=== PATIENT | female | born 1945 | race American Indian/Alaskan Native ===

== ENCOUNTER 2025-07-31 14:00 | Outpatient (REF) | payer MEDICAID, SELFPAY ==
--- NOTE | ~2025-07-31 | XR_ITS ---
EXAMINATION: XR CHEST CLINICAL INFORMATION: sob COMPARISON: None available. TECHNIQUE: PA and lateral views. FINDINGS: Pulmonary reticular pattern. No hyperinflation. No consolidation, pleural effusion or pneumothorax. Cardiomediastinal silhouette size is normal. Calcified plaque thoracic aorta. Multilevel lumbar spondylosis. Kyphotic deformity mid thoracic spine. Osteopenia versus osteoporosis. XR/XR chest 2V IMPRESSION: Chronic interstitial lung disease. Electronically signed by: Saurav Vizcarra MD 07/31/2025 02:34 PM EST
--- OUTSIDE RECORDS SUMMARY | 2025-07-31 13:00 | XMS_ITS | Encounter Summary ---
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 angina pectoris Mixed hyperlipidemia Acquired hypothyroidism Victor Hugo Bojorquez MD [address] [place] [address] Phone: tel: fax: Referral ID Status Reason Start Date Expiration Date Visits Requested Visits Authorized [id number] Authorized Continuity of Care 07/31/2025 07/31/2026 6 6 Scheduling Instructions Would benefit from med review and med box * Consultation (Routine) - Pending Review Specialty Diagnoses / Procedures Referred By Alan t Referred To Contact Otolaryngology Diagnoses Decreased hearing of both ears Victor Hugo Bojorquez MD [address] [place] [address] Phone: tel: fax: Referral ID Status Reason Start Date Expiration Date Visits Requested Visits Authorized [id number] Pending Review Specialty Services Required 07/31/2026 1 1 * Imaging (Routine) - Pending Review Specialty Diagnoses / Procedures Referred By Alan t Referred To Contact Cardiology Diagnoses SOB (shortness of breath) Procedures Transthoracic Echo (TTE) Complete Victor Hugo Bojorquez MD [address] [place] [address] Phone: tel: fax: Referral ID Status Reason Start Date Expiration Date Visits Requested Visits Authorized [id number] Pending Review Perform Procedure 07/31/2026 1 1 * Consultation (Routine) - Pending Review Specialty Diagnoses / Procedures Referred By Contac t Referred To Contact Cardiology Diagnoses SOB (shortness of breath) Victor uHgo oBjorquez MD [address] [place] [address] Phone: tel: fax: Referral ID Status Reason Start Date Expiration Date Visits Requested Visits Authorized [id number] Pending Review Specialty Services Required 07/31/2026 1 1 Reason for Visit * Reason Comments Breathing Problem Encounter Details Date Type Department Care Team (Late st Contact Info) Description 07/31/2025 1:00 PM EST Office Visit 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 pectoris; S/P angioplasty; Mixed hyperlipidemia; Migraine without status migrainosus, not intractable, unspecified migraine type; Acquired hypothyroidism; History of Meniere's disease; Decreased hearing of both ears Social History Tobacco Use Types Packs/Day Years Used Date Smoking Tobacco: Never Passive Smoke Exposure: Never Smokeless Tobacco: Never Tobacco Cessation:Counseling Given: Not Answered Alcohol Use Standard Drinks/Week Comments Never 0 (1 standard drink = 0.6 oz pur e alcohol) Comments Unknown Sex and Gender Information Value Date Recorded Sex Assigned at Female 07/31/2025 12:44 PM EST Legal Sex Female 10:21 AM EDT Gender Identity Female 07/31/2025 12:44 PM EST Sexual Orientation Straight 07/31/2025 12 :44 PM EST documented as of this encounter Last Filed Vital Signs Vital Sign Reading Time Taken Comments Blood Pressure 145/69 07/31/2025 1:07 PM EST Pulse 82 07/31/2025 1:07 PM EST Temperature 36.7 C (98.1 F) 07/31/2025 1:07 PM EST Respiratory Rate 16 07/31/2025 1:07 PM EST Oxygen Saturation 99% 07/31/2025 1:07 PM EST Inhaled Oxygen Concentration - - Weight 71.7 kg (158 lb) 07/31/2025 1:07 PM EST Height 162.6 cm (5' 4 ) 07/31/2025 1:07 PM EST Body Mass Index 27.12 07/31/2025 1:07 PM EST documented in this encounter Progress Notes * Victor Hugo Arredondo MD - 07/31/2025 1:00 PM EST SUBJECTIVE Mary Beth Saldaña is a 79 y.o. female who presents for Breathing Problem. Mary Beth Saldaña, 79 years Shortness of Breath - Onset approximately 15 days ago - Occurs with walking, especially when walking fast - No prior history of similar symptoms reported - Denies cough with sputum, denies wheezing Recent Upper Respiratory Symptoms - Last week had cold symptoms with fever and dry cough - No sore throat or earache reported Muscle Aches and Spasms - Complaints of muscle aches and muscle spasms during sleep Coronary Artery Disease - History of angioplasty 20 years ago and another angioplasty 4 months ago - Occasional chest pain reported - No stents placed during angioplasties Hearing Loss - Ongoing complaints of difficulty hearing Headaches - Occasional headaches reported, associated with aspirin use Thyroid Dysfunction - History of non-functioning thyroid Meniere???s Disease - History of Meniere???s disease, currently improved Hyperlipidemia - History of high cholesterol HPI Review of Systems Constitutional: Negative for fever. HENT: Negative for sore throat. Respiratory: Negative for cough and shortness of breath. Cardiovascular: Negative for chest pain. Gastrointestinal: Negative for abdominal pain. Neurological: Negative for headaches. Allergies[1] OBJECTIVE Vitals: 07/31/25 1307 BP: (!) 145/69 BP Location: Left arm Patient Position: Sitting BP Cuff Size: Adult Pulse: 82 Resp: 16 Temp: 98.1 ??F (36.7 ??C) TempSrc: Temporal SpO2: 99% Weight: 158 lb (71.7 kg) Height: 5' 4 (1.626 m) Physical Exam Vitals reviewed. Constitutional: Appearance: Normal appearance. HENT: Head: Normocephalic and atraumatic. Right Ear: External ear normal. Left Ear: External ear normal. Nose: Nose normal. Mouth/Throat: Mouth: Mucous membranes are moist. Eyes: Conjunctiva/sclera: Conjunctivae normal. Cardiovascular: Rate and Rhythm: Normal rate and regular rhythm. Pulmonary: Effort: Pulmonary effort is normal. Breath sounds: Normal breath sounds. Skin: General: Skin is warm. Neurological: Mental Status: She is alert. Mental status is at baseline. Assessment/Plan Problem List Items Addressed This Visit SOB (shortness of breath) - Primary Patient here with c/o new onset of FRANKLIN, reports a recent cold 15 days ago or so, feels perfectly fine in that regard now Etiology? Exam within normal limits, O2 sat Normal, lungs CTA B, No Leg edema Dyspnea on exertion of unclear etiology. Differential includes pneumonia, anemia, cardiac dysfunction, and thyroid dysfunction. Plan: Ordered chest X-ray, BNP,Ordered blood work to assess for anemia, thyroid function, cholesterol, and kidney function. Ordered echocardiogram to evaluate cardiac function. Referred to Cardiology as well Relevant Orders Comprehensive Metabolic Panel CBC auto differential XR Chest 2 Views B Type Natriuretic Peptide (BNP) Referral to Cardiology Transthoracic Echo (TTE) Complete Primary hypertension Pt with hypertension Today BP Controlled Plan: Refilled all her medications Regimen: Hydrochlorothiazide 50 mg po daily, Losartan 25 mg po daily BMP ordered Plan: Will continue monitoring. Will review medication regimen and ensure appropriate dosing. 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 On: NTG 2.5 mg SR daily ( although patient tells me she only takes 1/2 tab) Ranexa 500 mg she is only taking it daily although instructions say BID Pt is on Plavix and Atorvastatin Plan: ECHO Ordered referral to cardiology for ongoing management and follow-up at least twice yearly. Will review and refill cardiac medications as needed. Relevant Medications atorvastatin (Lipitor) 20 MG tablet clopidogrel (Plavix) 75 MG tablet hydroCHLOROthiazide (HYDRODiuril) 50 MG tablet losartan (Cozaar) 25 MG tablet nitroglycerin ER (Nitro-Time) 2.5 MG ER capsule ranolazine (Ranexa) 500 MG 12 hr tablet Other Relevant Orders Referral to Pharmacy [place] S/P angioplasty Status post two angioplasties, one performed 20 years ago and one performed March 30, 2025. Referred to cardiology. Continue Plavix, NTG, ranexa, Atorvastatin Referred to Cardiology Relevant Medications atorvastatin (Lipitor) 20 MG tablet clopidogrel (Plavix) 75 MG tablet hydroCHLOROthiazide (HYDRODiuril) 50 MG tablet losartan (Cozaar) 25 MG tablet nitroglycerin ER (Nitro-Time) 2.5 MG ER capsule Hyperlipidemia Known mixed hyperlipidemia. - Ordered blood work to assess current lipid profile. Relevant Medications atorvastatin (Lipitor) 20 MG tablet clopidogrel (Plavix) 75 MG tablet Other Relevant Orders Referral to Pharmacy [place] Migraines Occasional headaches described as aspirin headaches. Hypothyroidism Known hypothyroidism. - Ordered blood work to assess thyroid function. Will review medication regimen and ensure appropriate management. Relevant Medications atorvastatin (Lipitor) 20 MG tablet levothyroxine (Synthroid, Levoxyl) 100 MCG tablet Other Relevant Orders Referral to Pharmacy [place] History of Meniere's disease History of Meniere's disease: - Meniere's disease, currently stable. Decreased hearing of both ears Hearing loss: - Complaints of hearing loss. - Ordered referral for evaluation of hearing loss. Relevant Orders Referral to ENT This note was drafted using [employer] technology. The patient/patient's guardian has been informed and has consented to the use of this technology: Yes No future appointments. [1] No Known Allergies documented in this encounter Miscellaneous Notes * Assessment & Plan Note - Victor Hugo Arredondo MD - 07/31/2025 2:04 PM EST Associated Problem(s): History of Meniere's disease History of Meniere's disease: - Meniere's disease, currently stable. * Assessment & Plan Note - Victor Hugo Arredondo MD - 07/31/2025 2:04 PM EST Associated Problem(s): Hypothyroidism Known hypothyroidism. - Ordered blood work to assess thyroid function. Will review medication regimen and ensure appropriate management. * Assessment & Plan Note - Victor Hugo Arredondo MD - 07/31/2025 2:03 PM EST Associated Problem(s): Migraines Occasional headaches described as aspirin headaches. * Assessment & Plan Note - Victor Hugo Arredondo MD - 07/31/2025 2:03 PM EST Associated Problem(s): Hyperlipidemia Known mixed hyperlipidemia. - Ordered blood work to assess current lipid profile. * Assessment & Plan Note - Victor Hugo Arredondo MD - 07/31/2025 2:03 PM EST Associated Problem(s): S/P angioplasty Status post two angioplasties, one performed 20 years ago and one performed March 30, 2025. Referred to cardiology. 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 On: NTG 2.5 mg SR daily ( although patient tells me she only takes 1/2 tab) Ranexa 500 mg she is only taking it daily although instructions say BID Pt is on Plavix, NTG SR and Atorvastatin Plan: ECHO, Ordered referral to cardiology for ongoing management and follow-up at least twice yearly. Will review and refill cardiac medications as needed. Discussed with Pharmacist. There is no NTG SR in the available as of yet. ([employer] does not have it in formulary ) Will switch to Isosorbide Mononitrate 30 mg 1/2 tablet po daily ( discussed with Pharmacist, md sher split but not crushed or chewed ) * Assessment & Plan Note - Victor Hugo Arredondo MD - 07/31/2025 2:00 PM EST Associated Problem(s): Primary hypertension Pt with hypertension Today BP Controlled Plan: Refilled all her medications Regimen: Hydrochlorothiazide 50 mg po daily, Losartan 25 mg po daily BMP ordered Plan: Will continue monitoring. Will review medication regimen and ensure appropriate dosing. * Assessment & Plan Note - Victor Hugo Arredondo MD - 07/31/2025 1:58 PM EST Associated Problem(s): SOB (shortness of breath) Patient here with c/o new onset of FR[place], reports a recent cold 15 days ago or so, feels perfectly fine in that regard now Etiology? Exam within normal limits, O2 sat Normal, lungs CTA B, No Leg edema Dyspnea on exertion of unclear etiology. Differential includes pneumonia, anemia, cardiac dysfunction, and thyroid dysfunction. Plan: Ordered chest X-ray, BNP,Ordered blood work to assess for anemia, thyroid function, cholesterol, and kidney function. Ordered echocardiogram to evaluate cardiac function. Referred to Cardiology as well * Assessment & Plan Note - Victor Hugo Arredondo MD - 07/31/2025 1:50 PM EST Associated Problem(s): Decreased hearing of both ears Hearing loss: - Complaints of hearing loss. - Ordered referral for evaluation of hearing loss. documented in this encounter Plan of Treatment Scheduled Orders Name Type Priority Associated Diagnoses Orde r Schedule Comprehensive Metabolic Panel Lab Routine SOB (shortness of breath) Ordered: 07/31/2025 Lipid Panel, Standard Lab Routine Primary hypertension Ordered: 07/31/2025 TSH with Reflex to Free T4 Lab Routine Primary hypertension Ordered: 07/31/2025 CBC auto differential Lab Routine SOB (shortness of breath) Expected: 07/31/2025 (Approximate), Expires: 07/31/2026 B Type Natriuretic Peptide (BNP) Lab Routine SOB (shortness of breath) Expected: 07/31/2025, Expires: 07/31/2026 Transthoracic Echo (TTE) Complete Echocardiography Routine SOB (shortness of breath) Expected: 07/31/2025 (Approximate), Expires: 07/31/2027 Scheduled Referrals Name Type Priority Associated Diagnoses Orde r Schedule Referral to Cardiology Outpatient Referral Routine SOB (shortness of breath) Expected: 07/31/2025 (Approximate), Expires: 07/31/2026 Referral to ENT Outpatient Referral Routine Decreased hearing of both ears Expected: 07/31/2025 (Approximate), Expires: 07/31/2026 Referral to Pharmacy [place] Outpatient Referral Routine Primary hypertension Coronary artery disease involving grand ronde tribes coronary artery of grand ronde tribes heart without angina pectoris Mixed hyperlipidemia Acquired hypothyroidism Ordered: 07/31/2025 documented as of this encounter Procedures Procedure Name Priority Date/Time Associated Diagnosis Comments XR CHEST 2 VIEWS Routine 07/31/2025 2:26 PM EST SOB (shortness of breath) documented in this encounter Results * XR Chest 2 Views (07/31/2025 2:26 PM EST) Anatomical Region Laterality Modality Chest Radiographic Darya ging 07/31/2025 2:26 PM EST Narrative 07/31/2025 2:36 PM EST [facility] [address] [place] [address] XRay Report Signed Patient: Mary Beth Saldaña MR#: [id number] : 1945 Acct:[id number] Age/Sex: 79 / F ADM Date: 07/31/25 Loc: [facility] Attending Dr: Victor Hugo Cordova MD Ordering Physician: Victor Hugo Cordova MD Date of Service: 07/31/25 Procedure(s): XR chest 2V Accession Number(s): [id number] cc: Victor Hugo Cordova MD Reason for Exam: sob EXAMINATION: XR CHEST CLINICAL INFORMATION: sob COMPARISON: None available. TECHNIQUE: PA and lateral views. FINDINGS: Pulmonary reticular pattern. No hyperinflation. No consolidation, pleural effusion or pneumothorax. Cardiomediastinal silhouette size is normal. Calcified plaque thoracic aorta. Multilevel lumbar spondylosis. Kyphotic deformity mid thoracic spine. Osteopenia versus osteoporosis. XR/XR chest 2V IMPRESSION: Chronic interstitial lung disease. Electronically signed by: Saurav Vizcarra MD 07/31/2025 02:34 PM EST Dictated By: Saurav Arceo MD Signed By: <Electronically signed by Saurav Chi MD in OV> 07/31/25 1434 DD/ 1426 TD/TT: 07/31/25 1431 Big Data Lead: Procedure Note Donotuseinterpreter, Image - 07/31/2025 [facility] [address] [place] [address] XRay Report Signed Patient: Cesario SaldañaR#: [id number] 500 : 1945cct:[id number] Age/Sex: 79 / FADM Date: 07/31/25 Loc: [facility] Attending Dr: Victor Hugo Cordova MD Ordering Physician: Victor Hugo Cordova MD Date of Service: 07/31/25 Procedure(s): XR chest 2V Accession Number(s): [id number] cc: Victor Hugo Cordova MD Reason for Exam: sob EXAMINATION: XR CHEST CLINICAL INFORMATION: sob COMPARISON: None available. TECHNIQUE: PA and lateral views. FINDINGS: Pulmonary reticular pattern. No hyperinflation. No consolidation, pleural effusion or pneumothorax. Cardiomediastinal silhouette size is normal. Calcified plaque thoracic aorta. Multilevel lumbar spondylosis. Kyphotic deformity mid thoracic spine. Osteopenia versus osteoporosis. XR/XR chest 2V IMPRESSION: Chronic interstitial lung disease. Electronically signed by: Saurav Vizcarra MD 07/31/2025 02:34 PM EST Dictated By: Saurav Arceo MD Signed By: <Electronically signed by Saurav Chi MDin OV> 07/31/25 1434 DD/ 1426 TD/TT: 07/31/25 1431 Big Data Lead: us Victor Hugo Arredondo MD IMG XR PROCEDURES Ren donell Result - Final documented in this encounter Visit Diagnoses Diagnosis SOB (shortness of breath)- Primary Shortness of breath Primary hypertension Unspecified essential hypertension Coronary artery disease involving grand ronde tribes coronary artery of grand ronde tribes heart without angina pectoris S/P angioplasty Postsurgical percutaneous transluminal coronary angioplasty status Mixed hyperlipidemia Migraine without status migrainosus, not intractable, unspecified migraine type Acquired hypothyroidism Unspecified hypothyroidism History of Meniere's disease Decreased hearing of both ears documented in this encounter
--- OUTSIDE RECORDS SUMMARY | 2025-07-31 15:45 | XMS_ITS | Encounter Summary ---
Author Organization [employer] Address [address] [facility] 7t [place] [address] Care Team Providers Care Creping Machine Operator Helper Name Role Phone Unavailable Primary Care Provider Unavailabl e Encounter Details Date Type Department Care Team (Late st Contact Info) Description 07/31/2025 Telephone [facility] [address] [place], [place] [phone] Irma Cee MD [address] [place], [place] [phone] Social History Tobacco Use Types Packs/Day Years Used Date Smoking Tobacco: Never Passive Smoke Exposure: Never Smokeless Tobacco: Never Alcohol Use Standard Drinks/Week Comments Never 0 (1 standard drink = 0.6 oz pur e alcohol) Comments Unknown Sex and Gender Information Value Date Recorded Sex Assigned at Female 07/31/2025 12:44 PM EST Legal Sex Female 10:21 AM EDT Gender Identity Female 07/31/2025 12:44 PM EST Sexual Orientation Straight 07/31/2025 12 :44 PM EST documented as of this encounter Miscellaneous Notes * Telephone Encounter - Nancy Chaudhry - 07/31/2025 11:22 AM EST Mary Beth Saldaña was seen by insurance enrollment department and can have a new patient appointment scheduled. documented in this encounter Plan of Treatment Not on file documented as of this encounter Visit Diagnoses Not on filedocumented in this encounter
--- OUTSIDE RECORDS SUMMARY | 2025-07-31 15:45 | XMS_ITS | Encounter Summary ---
Author Organization [employer] [facility] Address [address] [facility] [address]t [place] [address] Care Team Providers Care Architectural Design Lecturer Name Role Phone Unavailable Primary Care Provider Unavailabl e Encounter Details Date Type Department Care Team (Latest Contact Info) Description 07/31/2025 Travel Social History Tobacco Use Types Packs/Day Years [...] PM EST documented as of this encounter Plan of Treatment Not on file documented as of this encounter Visit Diagnoses Not on filedocumented in this encounter
--- OUTSIDE RECORDS SUMMARY | 2025-07-31 15:45 | XMS_ITS | Encounter Summary ---
Author Organization [employer] Address [address] [facility] 7t [place] [address] Care Team Providers Care Felling Machine Operator Name Role Phone Unavailable Primary Care Provider Unavailabl e Encounter Details Date Type Department Care Team (Late st Contact Info) Description 07/31/2025 Telephone [facility] [address] [place], [place] [phone] Victor Hugo Bojorquez MD [address] [place], [place] [phone] Social History Tobacco Use Types Packs/Day Years [...] encounter Miscellaneous Notes * Telephone Encounter - Phyllis Lagunas RN - 07/31/2025 3:19 PM EST TC placed [facility] [place] [facility] [place] [id number] Cheryl pt son jef ferraro picked up the phone and +HIPAA speaks Divehi so ended call. TC placed back to and the message was discussed, family is aware not to give both medications use Nirto- Time until it is finished then switch to the Isosorbide Mononitrate 30 mg 1/2 tablet po daily ----- Message from Victor Hugo Arredondo MD sent at 07/31/2025 3:01 PM EST ----- Eduardo Ferguson Discussed with Pharmacist. There is no NTG SR in the [place] available as of yet. ([employer] does not have it in formulary ) Will switch to Isosorbide Mononitrate 30 mg 1/2 tablet po daily ( discussed with Pharmacist, md sher split but not crushed or chewed ) Please contact director of medicare and let him know that Sustac Er 2.5 mg is not available in the [place]. She can continue that medication until she runs out and then she can start the new medication I sent (Isosorbide mononitrate 30 mg 1/2 tab po daily ) Please make sure they DO NOT GIVE HER BOTH MEDICATIONS. documented in this encounter Plan of Treatment Not on file documented as of this encounter Visit Diagnoses Not on filedocumented in this encounter
--- OUTSIDE RECORDS SUMMARY | 2025-07-31 15:45 | XMS_ITS | Clinical Summary ---
Author Organization [employer] Address [address] [facility] [address] [place] [address] Care Team Providers Care Machine Feeder Floorperson Name Role Phone Unavailable Primary Care Provider Unavailabl e Allergies No known active allergies Medications atorvastatin (Lipitor) 20 MG tabletIndications :Mixed hyperlipidemia Take 1 tablet (20 mg) by mouth Once per day. 30 tablet 3 07/31/20 25 Active clopidogrel (Plavix) 75 MG tabletIndications :Coronary artery disease involving [place] coronary artery of [place] heart without angina pectoris Take 1 tablet (75 mg) by mouth Once per day. 30 tablet 3 07/31/20 25 Active hydroCHLOROthiazi de (HYDRODiuril) 50 MG tabletIndications :Primary hypertension Take 1 tablet (50 mg) by mouth Once per day. 30 tablet 3 07/31/20 25 Active losartan (Cozaar) 25 MG tabletIndications :Primary hypertension Take 1 tablet (25 mg) by mouth Once per day. 30 tablet 3 07/31/20 25 Active ranolazine (Ranexa) 500 MG 12 hr tabletIndications :Coronary artery disease involving [place] coronary artery of [place] heart without angina pectoris Take 1 tablet (500 mg) by mouth 2 times daily. Do not crush, chew, or split. 60 tablet 3 07/31/20 25 Active levothyroxine (Synthroid, Levoxyl) 100 MCG tabletIndications :Acquired hypothyroidism Take 1 tablet (100 mcg) by mouth before breakfast. 30 tablet 3 07/31/20 25 Active isosorbide mononitrate ER (Imdur) 30 MG 24 hr tabletIndications :Coronary artery disease involving [place] coronary artery of [place] heart without angina pectoris Take 1/2 tab po daily Do not crush or chew. 30 tablet 3 07/31/20 25 Active nitroglycerin ER (Nitro-Time) 2.5 MG ER capsule Take 2.5 mg by mouth Once per day. Do not crush, chew, or split. Discontinued(Re order (will not trigger notification to Pharmacy)) clopidogrel (Plavix) 75 MG tablet Take 75 mg by mouth Once per day. Discontinued(Re order (will not trigger notification to Pharmacy)) ranolazine (Ranexa) 500 MG 12 hr tablet Take 500 mg by mouth Once per day. Do not crush, chew, or split. Discontinued(Re order (will not trigger notification to Pharmacy)) atorvastatin (Lipitor) 20 MG tablet Take 20 mg by mouth Once per day. Discontinued(Re order (will not trigger notification to Pharmacy)) hydroCHLOROthiazi de (HYDRODiuril) 50 MG tablet Take 50 mg by mouth Once per day. Discontinued(Re order (will not trigger notification to Pharmacy)) losartan (Cozaar) 25 MG tablet Take 25 mg by mouth Once per day. Discontinued(Re order (will not trigger notification to Pharmacy)) levothyroxine (Synthroid, Levoxyl) 100 MCG tablet Take 100 mcg by mouth before breakfast. Discontinued(Re order (will not trigger notification to Pharmacy)) nitroglycerin ER (Nitro-Time) 2.5 MG ER capsuleIndication s:Coronary artery disease involving [place] coronary artery of [place] heart without angina pectoris Take 1 capsule (2.5 mg) by mouth Once per day. Do not crush, chew, or split. 30 capsule 3 07/31/20 25 Discontinued(Th erapy completed) Active Problems Problem Noted Date Diagnosed Date Primary hypertension 07/31/2025 Assessment & Plan (07/31/2025 2:00 PM EST): Pt with hypertension Today BP Controlled Plan: Refilled all her medications Regimen: Hydrochlorothiazide 50 mg po daily, Losartan 25 mg po daily BMP ordered Plan: Will continue monitoring. Will review medication regimen and ensure appropriate dosing. Coronary artery disease invo lving [place] coronary artery of [place] heart without angina pectoris 07/31/2025 Assessment & Plan (07/31/2025 2:59 PM EST): Patient with history of CAD,- Coronary artery [...] in the [place] available as of yet. ([employer] does not have it in formulary ) Will switch to Isosorbide Mononitrate 30 mg 1/2 tablet po daily ( discussed with Pharmacist, md can be split but not crushed or chewed ) S/P angioplasty 07/31/2025 Assessment & Plan (07/31/2025 2:03 PM EST): Status post two angioplasties, one performed 20 years ago and one performed March 30, 2025. Referred to cardiology. Continue Plavix, NTG, ranexa, Atorvastatin Referred to Cardiology Hyperlipidemia 07/31/2025 Assessment & Plan (07/31/2025 2:03 PM EST): Known mixed hyperlipidemia. - Ordered blood work to assess current lipid profile. Migraines 07/31/2025 Assessment & Plan (07/31/2025 2:03 PM EST): Occasional headaches described as aspirin headaches. Hypothyroidism 07/31/2025 Assessment & Plan (07/31/2025 2:04 PM EST): Known hypothyroidism. - Ordered blood work to assess thyroid function. Will review medication regimen and ensure appropriate management. History of Meniere's disease 07/31/2025 Assessment & Plan (07/31/2025 2:04 PM EST): History of Meniere's disease: - Meniere's disease, currently stable. Decreased hearing of both ears 07/31/2025 Assessment & Plan (07/31/2025 2:04 PM EST): Hearing loss: - Complaints of hearing loss. - Ordered referral for evaluation of hearing loss. SOB (shortness of breath) 07/31/2025 Assessment & Plan (07/31/2025 1:58 PM EST): Patient here with c/o new onset of [...] cardiac function. Referred to Cardiology as well Encounters Date Type Department Care Team Description 07/31/2025 1:00 PM EST Office Visit [facility] [address] [place] [address] Victor Hugo Bojorquez MD SOB (shortness of breath) (Primary Dx); Primary hypertension; Coronary artery disease involving [place] coronary artery of [place] heart without angina pectoris; S/P angioplasty; Mixed hyperlipidemia; Migraine without status migrainosus, not intractable, unspecified migraine type; Acquired hypothyroidism; History of Meniere's disease; Decreased hearing of both ears 07/31/2025 Telephone [facility] [address] [place] [address] Victor Hugo Bojorquez MD 07/31/2025 Travel 07/31/2025 Telephone [facility] [address] [place], [place] [phone] Irma Cee MD from Last 3 Months Social History Tobacco Use Types Packs/Day Years [...] Orientation Straight 07/31/2025 12 :44 PM EST Last Filed Vital Signs Vital Sign Reading [...] Mass Index 27.12 07/31/2025 1:07 PM EST Plan of Treatment Health Maintenance Due Date Last Done Comments Depression Screening 1945 Lipid Panel 1945 SDOH Screening 1945 Alcohol/Substance Use Screening 1958 Hepatitis C Screening 1964 DTaP/Tdap/Td Vaccines (1 - Tdap) 1965 Pneumococcal Vaccine: 50+ Ye ars (1 of 2 - PCV) 1965 Zoster Vaccines (1 of 2) 1996 RSV Patients and Pa tients Aged 60 years or older (1 - 1-dose 75+ series) 2021 COVID-19 Vaccine ( - 2023-2 5 season) 2025 Influenza Vaccine (#1) 2025 Tobacco Screening 07/31/2026 07/31/2025 HIB Vaccines Aged Out No longer eligi ble based on patient's age to complete this topic HPV Vaccines Aged Out No longer eligi ble based on patient's age to complete this topic Hepatitis A Vaccines Aged Out No long er eligible based on patient's age to complete this topic Hepatitis B Vaccines Aged Out No long er eligible based on patient's age to complete this topic IPV Vaccines Aged Out No longer eligi ble based on patient's age to complete this topic Meningococcal B Vaccine Aged Out No l onger eligible based on patient's age to complete this topic Meningococcal Vaccine Aged Out No nighat william eligible based on patient's age to complete this topic RSV under 20 months Aged Out No longe r eligible based on patient's age to complete this topic Rotavirus Vaccines Aged Out No longer eligible based on patient's age to complete this topic Procedures Procedure Name Priority Date/Time Associated Diagnosis Comments XR CHEST 2 VIEWS Routine 07/31/2025 2:26 PM EST SOB (shortness of breath) from Last 3 Months Results * XR Chest 2 Views (07/31/2025 2:26 PM EST) Anatomical Region Laterality Modality Chest Radiographic Darya ging 07/31/2025 2:26 PM EST Narrative 07/31/2025 2:36 PM EST [address] [address] XRay Report Signed Patient: Mary Beth Saldaña MR#: [id number] 500 : 1945 Acct:[id number] Age/Sex: 79 / F ADM Date: 07/31/25 Loc: HO.HHCX Attending Dr: Victor Hugo Cordova MD Ordering Physician: Victor Hugo Cordova MD Date of Service: 07/31/25 Procedure(s): XR chest 2V Accession Number(s): [id number] cc: Victor Hugo Cordova MD Reason for [...] 07/31/25 1434 DD/ 1426 TD/TT: 07/31/25 1431 Event Host: Procedure Note Donotuseinterpreter, Image - 07/31/[address] [address] XRay Report Signed Patient: Cesario SaldañaR#: [id number] 500 : 1945cct:[id number] Age/Sex: 79 / FADM Date: 07/31/25 Loc: HO.HHCX Attending Dr: Victor Hugo Cordova MD Ordering Physician: Victor Hugo Cordova MD Date of Service: 07/31/25 Procedure(s): XR chest 2V Accession Number(s): [id number] cc: Victor Hugo Cordova MD Reason for [...] 07/31/25 1434 DD/ 1426 TD/TT: 07/31/25 1431 Event Host: Victor Hugo Arredondo MD IMG XR PROCEDURES Ren donell Result - Final from Last [address] [address] [employer]
== END 2025-07-31 14:01 | disposition home or self-care (01) ==
LOC: HO.HHCX 14:00
PROVIDERS: Visit Provider Internal Medicine
DX: R06.02 Shortness of breath (principal)
CPT/HCPCS: 71046

== ENCOUNTER → 2025-07-31 14:04 | Outpatient (BNV) | payer MEDICAID, SELFPAY | PROVIDERS: Visit Provider Radiology Diagnostic Radiology | DX: J84.9 Interstitial pulmonary disease, unspecified (principal) | CPT/HCPCS: 71046 ==

== ENCOUNTER 2025-08-01 11:32 | Outpatient (REF) | payer MEDICAID, SELFPAY ==
--- OUTSIDE RECORDS SUMMARY | 2025-07-31 13:00 | XMS_ITS | Encounter Summary ---
Author Organization [employer] [facility], 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 Mixed hyperlipidemia Acquired hypothyroidism Victor Hugo Bojorquez MD [address] [place] [address] Phone: tel: fax: Referral ID Status Reason Start Date Expiration Date Visits Requested Visits Authorized [id number] Authorized Continuity of Care 07/31/2025 07/31/2026 6 6 Scheduling Instructions Would benefit from med review and med box * Consultation (Routine) - Closed Specialty Diagnoses / Procedures Referred By Contsadie t Referred To Contact Otolaryngology Diagnoses Decreased hearing of both ears Victor Hugo Bojorquez MD [address] [place] [address] Phone: tel: fax: [facility] [address] Phone: tel: fax: Referral ID Status Reason Start Date Expiration Date V isits Requested Visits Authorized [id number] Closed Specialty Services Required 07/31/2025 07/31/2026 1 1 * Imaging (Routine) - Authorized Specialty Diagnoses / Procedures Referred By Contac t Referred To Contact Cardiology Diagnoses SOB (shortness of breath) Procedures Transthoracic Echo (TTE) Complete Victor Hugo Bojorquez MD [address] [place] [address] Phone: tel: fax: [address] Phone: tel: fax: Referral ID Status Reason Start Date Expiration Date Visits Requested Visits Authorized [id number] Authorized Perform Procedure 5 07/31/2026 1 1 * Consultation (Routine) - Authorized Specialty Diagnoses / Procedures Referred By Contsadie t Referred To Contact Cardiology Diagnoses SOB (shortness of breath) Victor Hugo Bojorquez MD [address] [place] [address] Phone: tel: fax: [address] Phone: tel: fax: Referral ID Status Reason Start Date Expiration Date Visits Requested Visits Authorized [id number] Authorized Specialty Services Required 07/31/2026 1 1 Reason for Visit * Reason Comments Breathing Problem Encounter Details Date Type Department Care Team (Late st Contact Info) Description 07/31/2025 1:00 PM EST Office Visit [facility] [address] [place] [phone] Victor Hugo Bojorquez MD [address] [place] [address] [phone] SOB (shortness of breath) (Primary Dx); Primary hypertension; Coronary artery disease involving [place] coronary artery of [place] heart without angina pectoris; S/P angioplasty; Mixed [...] Reflex to Free T4 Referral to Pharmacy [place] Coronary artery disease involving [place] coronary artery of [place] heart without angina pectoris Patient with history [...] tablet Other Relevant Orders Referral to Pharmacy [facility] Migraines Occasional headaches described as aspirin headaches. [...] ENT This note was drafted using Ambient (AI) technology. The patient/patient's guardian has been informed [...] EST Associated Problem(s): Coronary artery disease involving [place] coronary artery of [place] heart without angina pectoris Patient with history [...] There is no NTG SR in the [place] available as of yet. ([employer] does not have it in formulary ) [...] T4 Lab Routine Primary hypertension Ordered: 07/31/2025 B Type Natriuretic Peptide (BNP) Lab Routine [...] 07/31/2025 (Approximate), Expires: 07/31/2026 Referral to Pharmacy [facility] Outpatient Referral Routine Primary hypertension Coronary artery disease involving [place] coronary artery of [place] heart without angina pectoris Mixed hyperlipidemia Acquired hypothyroidism Ordered: 07/31/2025 documented as of this encounter Procedures Procedure Name Priority Date/Time Associated Diagnosis Comments CBC WITH AUTO DIFFERENTIAL Routine 08/01/2025 11:47 AM EST SOB (shortness of breath) XR CHEST 2 VIEWS Routine 07/31/2025 2:26 PM EST SOB (shortness of breath) documented in this encounter Results * (ABNORMAL) CBC auto differential (08/01/2025 11:47 AM EST) White Blood Count 4.9 4.8 - 10.8 X10*3/uL [facility] Red Blood Count 4.27 4.20 - 5.50 X10*6/uL [facility] Hemoglobin 12.7 12.0 - 16.0 g/dl [facility] Hematocrit 37.5 37.0 - 47.0 % [facility] Mean Corpuscular Volume 87.8 80.0 - 98.0 fL [facility] Mean Corpuscular Hemoglobin 29.7 27.0 - 33.0 pg [facility] Mean Corpuscular HGB Conc 33.9 31.0 - 35.0 g/dl [facility] Red Cell Distribution Width 12.0 11.0 - 16.0 % [facility] Platelet Count 308 160 - 400 X10*3/uL [facility] Mean Platelet Volume 9.2(L) 9.4 - 12.3 fL [facility] Neutrophils Percent Auto 76.2(H) 45 - 73 % [facility] Imm Gran Pct Auto 0.2 0.0 - 0.4 % [facility] Lymphocytes Percent Auto 15.2(L) 20 - 40 % [facility] Monocytes Percent Auto 5.3 2 - 11 % [facility] Eosinophils Percent Auto 2.7 0 - 4 % [facility] Basophils Percent Auto 0.4 0 - 2 % [facility] NRBC Pct Auto 0.0 0.0 - 0.2 /100WBC [facility] Neutrophils Absolute Auto 3.7 2.0 - 8.3 x10*3/uL [facility] Imm Gran Abs Auto 0.01 0.00 - 0.03 X10*3/uL [facility] Lymphocytes Absolute Auto 0.7(L) 1.2 - 4.9 X10*3/uL [facility] Monocytes Absolute Auto 0.3 0.1 - 1.2 X10*3/uL [facility] Eosinophils Absolute Auto 0.1 0.0 - 0.4 X10*3/uL [facility] Basophils Absolute Auto 0.0 0.0 - 0.2 X10*3/uL [facility] NRBC Abs Auto 0.000 0.0 - 0.012 X10*3/uL [facility] Blood Venous blood specimen / Unknown 08/01/2025 11:47 AM EST 08/01/2025 1:52 PM EST Victor Hugo Arredondo MD LAB BLOOD ORDERABLES Final Result Performing Organization Address City/State/[facility] Co de Phone Number [facility] [address] [place] [phone] * XR Chest 2 Views (07/31/2025 2:26 PM EST) Anatomical Region Laterality Modality Chest Radiographic Darya ging 07/31/2025 2:26 PM EST Narrative 07/31/2025 2:36 PM EST [address] [address] XRay Report Signed Patient: Mary Beth Saldaña MR#: [id number] 500 : 1945 Acct:[id number] Age/Sex: 79 / F ADM Date: 07/31/25 Loc: HO.HHCX Attending Dr: Victor Hugo Cordova MD Ordering Physician: Victor Hugo Cordova MD Date of Service: 07/31/25 Procedure(s): XR chest 2V Accession Number(s): [id number] cc: Victor Hugo Cordova MD Reason for [...] Saurav Vizcarra MD 07/31/2025 02:34 PM EST RP Dictated By: Saurav Arceo MD Signed By: <Electronically signed by Saurav Chi MD in OV> 07/31/25 1434 DD/ 1426 TD/TT: 07/31/25 1431 Barber Instructor: Procedure Note Donotuseinterpreter, Image - 07/31/2025 [place] [address] XRay Report Signed Patient: Christopher Saldaña#: [id number] 500 : 1945cct:[id number] Age/Sex: 79 / FADM Date: 07/31/25 Loc: HO.HHCX Attending Dr: Victor Hugo Cordova MD Ordering Physician: Victor Hugo Cordova MD Date of Service: 07/31/25 Procedure(s): XR chest 2V Accession Number(s): [id number] cc: Victor Hugo Cordova MD Reason for [...] Saurav Vizcarra MD 07/31/2025 02:34 PM EST RP Dictated By: Saurav Arceo MD Signed By: <Electronically signed by Saurav Chi MDin OV> 07/31/25 1434 DD/ 1426 TD/TT: 07/31/25 1431 Barber Instructor: us Victor Hugo Arredondo MD IMG XR PROCEDURES Ren donell Result - Final documented in this encounter Visit Diagnoses Diagnosis SOB (shortness of breath)- Primary Shortness of breath Primary hypertension Unspecified essential hypertension Coronary artery disease involving [place] coronary artery of [place] heart without angina pectoris S/P angioplasty Postsurgical percutaneous transluminal coronary angioplasty status Mixed hyperlipidemia Migraine without status migrainosus, not intractable, unspecified migraine type Acquired hypothyroidism Unspecified hypothyroidism History of Meniere's disease Decreased hearing of both ears documented in this encounter
[2025-08-01 13:58] LABS: MANUAL DIFF FLAG NO
[2025-08-01 14:05] LABS: Hematocrit 37.5 % (37.0-47.0); Hemoglobin 12.7 g/dl (12.0-16.0); Imm Gran Abs Auto 0.01 X10*3/uL (0.00-0.03); Imm Gran Pct Auto 0.2 % (0.0-0.4); Lymphocytes Absolute Auto 0.7 X10*3/uL (1.2-4.9); Mean Corpuscular HGB Conc 33.9 g/dl (31.0-35.0); Mean Corpuscular Hemoglobin 29.7 pg (27.0-33.0); Mean Corpuscular Volume 87.8 fL (80.0-98.0); NRBC Abs Auto 0.000 X10*3/uL (0.0-0.012); NRBC Pct Auto 0.0 /100WBC (0.0-0.2); Platelet Count 308 X10*3/uL (160-400); Red Blood Count 4.27 X10*6/uL (4.20-5.50); White Blood Count 4.9 X10*3/uL (4.8-10.8)
--- OUTSIDE RECORDS SUMMARY | 2025-08-01 14:27 | XMS_ITS | Encounter Summary ---
Author Organization [employer] Address [address] [facility] 7t [place] [address] Care Team Providers Care Continuous Process Rotary Drum Tanner Name Role Phone Unavailable Primary Care Provider Unavailabl e Encounter Details Date Type Department Care Team (Late st Contact Info) Description 07/31/2025 Telephone [facility] [address] [place], [place] [phone] Irma Cee MD [address] [place], [place] [phone] Social History Tobacco Use Types Packs/Day Years [...]
--- OUTSIDE RECORDS SUMMARY | 2025-08-01 14:27 | XMS_ITS | Encounter Summary ---
Author Organization [employer] Address [address] [facility] [address]t [place] [address] Care Team Providers Care Milk Driver Name Role Phone Unavailable Primary Care Provider Unavailabl e Encounter Details Date Type Department Care Team (Late st Contact Info) Description 07/31/2025 Telephone [facility] [address] [place], [place] [phone] Victor Hugo Bojorquez MD [address] [place], [place] [phone] Social History Tobacco Use Types Packs/Day Years [...] Miscellaneous Notes * Telephone Encounter - Phyllis Lgaunas RN - 07/31/2025 3:19 PM EST TC placed to pt [place] [facility] [place] [id number] Cheryl pt son jef ferraro picked up the phone and +HIPAA speaks Yi so ended call. TC placed back to [...] in the [place] available as of yet. ([employer] does not have it in formulary ) Will switch to Isosorbide Mononitrate 30 mg 1/2 tablet po daily ( discussed with Pharmacist, md sher split but not crushed or chewed ) Please contact assisted living care manager and let him know that Sustac Er [...]
--- OUTSIDE RECORDS SUMMARY | 2025-08-01 14:27 | XMS_ITS | Encounter Summary ---
Author Organization [employer] [facility] Address [address] [facility] 7t [place] [address] Care Team Providers Care Automotive Instructor Name Role Phone Unavailable Primary Care Provider [...]
--- OUTSIDE RECORDS SUMMARY | 2025-08-01 14:27 | XMS_ITS | Clinical Summary ---
Author Organization [employer] Address [address] [facility] [address] [place] [address] Care Team Providers Care Sorter Laundry Articles Name Role Phone Unavailable Primary Care Provider Unavailabl e Allergies No known active allergies Medications atorvastatin (Lipitor) 20 MG tabletIndications :Mixed hyperlipidemia Take 1 tablet (20 mg) by mouth Once per day. 30 tablet 3 5 12:16 PM EST 07/31/20 25 Active clopidogrel (Plavix) 75 MG tabletIndications :Coronary artery disease involving [place] coronary artery of [place] heart without angina pectoris Take 1 tablet (75 mg) by mouth Once per day. 30 tablet 3 5 12:16 PM EST 07/31/20 25 Active hydroCHLOROthiazi de (HYDRODiuril) 50 MG tabletIndications :Primary hypertension Take 1 tablet (50 mg) by mouth Once per day. 30 tablet 3 5 12:16 PM EST 07/31/20 25 Active losartan (Cozaar) 25 MG tabletIndications :Primary hypertension Take 1 tablet (25 mg) by mouth Once per day. 30 tablet 3 5 12:16 PM EST 07/31/20 25 Active ranolazine (Ranexa) 500 MG 12 hr tabletIndications :Coronary artery disease involving [place] coronary artery of [place] heart without angina pectoris Take 1 tablet (500 mg) by mouth 2 times daily. Do not crush, chew, or split. 60 tablet 3 5 12:16 PM EST 07/31/20 25 Active levothyroxine (Synthroid, Levoxyl) 100 MCG tabletIndications :Acquired hypothyroidism Take 1 tablet (100 mcg) by mouth before breakfast. 30 tablet 3 5 12:16 PM EST 07/31/20 25 Active isosorbide mononitrate ER (Imdur) 30 MG 24 hr tabletIndications :Coronary artery disease involving [place] coronary artery of [place] heart without angina pectoris Take 1/2 tab [...] MG ER capsuleIndication s:Coronary artery disease involving [place] coronary artery of [place] heart without angina pectoris Take 1 capsule [...] appropriate dosing. Coronary artery disease invo lving [place] coronary artery of [place] heart without angina pectoris 07/31/2025 Assessment & [...] in the [place] available as of yet. ([employer] does not have it in formulary ) [...] Description 07/31/2025 1:00 PM EST Office Visit [facility] [address] [place] [phone] Victor Hugo Bojorquez MD SOB (shortness of breath) (Primary Dx); Primary hypertension; Coronary artery disease involving [place] coronary artery of [place] heart without angina pectoris; S/P angioplasty; Mixed hyperlipidemia; Migraine without status migrainosus, not intractable, unspecified migraine type; Acquired hypothyroidism; History of Meniere's disease; Decreased hearing of both ears 07/31/2025 Telephone [facility] [address] [place] [phone] Victor Hugo Bojorquez MD 07/31/2025 Travel 07/31/2025 Telephone [facility] [address] [place] [address] Irma Cee MD from Last 3 Months [...] 1945 Lipid Panel 1945 SDOH Screening 1945 HIB Vaccines (1 of 1 - Risk 1-dose series) 03/11/1948 Meningococcal Vaccine (1 - R isk 2-dose series) 1948 Meningococcal B Vaccine (1 o f 4 - Increased Risk) 1956 Alcohol/Substance Use Screening 1958 Hepatitis C Screening 1964 DTaP/Tdap/Td Vaccines (1 - Tdap) 1965 Pneumococcal Vaccine: 50+ Ye ars (1 of 2 - PCV) 1965 Zoster Vaccines (1 of 2) 1996 RSV Patients and Pa tients Aged 60 years or older (1 - 1-dose 75+ series) 2021 COVID-19 Vaccine (1 - 2024-2 6 season) 2025 Influenza Vaccine (#1) 2025 Tobacco Screening 07/31/2026 07/31/2025 HPV Vaccines Aged Out No longer eligi [...] breath) from Last 3 Months Results * (ABNORMAL) CBC auto differential (08/01/2025 11:47 AM EST) White Blood Count 4.9 4.8 - 10.8 X10*3/uL [facility] Red Blood Count 4.27 4.20 - 5.50 X10*6/uL [facility] Hemoglobin 12.7 12.0 - 16.0 g/dl [facility] Hematocrit 37.5 37.0 - 47.0 % [facility] Mean Corpuscular Volume 87.8 80.0 - 98.0 fL [facility] Mean Corpuscular Hemoglobin 29.7 27.0 - 33.0 pg [facility] Mean Corpuscular HGB Conc 33.9 31.0 - 35.0 g/dl [facility] Red Cell Distribution Width 12.0 11.0 - 16.0 % [facility] Platelet Count 308 160 - 400 X10*3/uL [facility] Mean Platelet Volume 9.2(L) 9.4 - 12.3 fL [facility] Neutrophils Percent Auto 76.2(H) 45 - 73 % [facility] Imm Gran Pct Auto 0.2 0.0 - 0.4 % [facility] Lymphocytes Percent Auto 15.2(L) 20 - 40 % [facility] Monocytes Percent Auto 5.3 2 - 11 % [facility] Eosinophils Percent Auto 2.7 0 - 4 % [facility] Basophils Percent Auto 0.4 0 - 2 % [facility] NRBC Pct Auto 0.0 0.0 - 0.2 /100WBC [facility] Neutrophils Absolute Auto 3.7 2.0 - 8.3 x10*3/uL [facility] Imm Gran Abs Auto 0.01 0.00 - 0.03 X10*3/uL [facility] Lymphocytes Absolute Auto 0.7(L) 1.2 - 4.9 X10*3/uL [facility] Monocytes Absolute Auto 0.3 0.1 - 1.2 X10*3/uL [facility] Eosinophils Absolute Auto 0.1 0.0 - 0.4 X10*3/uL [facility] Basophils Absolute Auto 0.0 0.0 - 0.2 X10*3/uL [facility] NRBC Abs Auto 0.000 0.0 - 0.012 X10*3/uL [facility] Blood Venous blood specimen / Unknown 08/01/2025 11:47 AM EST 08/01/2025 1:52 PM EST us Victor Hugo Arredondo MD LAB BLOOD ORDERABLES Final Result Performing Organization Address City/State/[facility] Co de Phone Number [facility] [address] [place] [phone] * XR Chest 2 Views (07/31/2025 2:26 PM EST) Anatomical Region Laterality Modality Chest Radiographic Darya ging 07/31/2025 2:26 PM EST Narrative 07/31/2025 2:36 PM EST [facility] [address] [place] [address] XRay Report Signed Patient: Mary Beth Saldaña MR#: [id number] 500 : 1945 Acct:[id number] Age/Sex: 79 / F ADM Date: 07/31/25 Loc: HO.HHCX Attending Dr: Victor Hugo Cordova MD Ordering Physician: Victor Hugo Cordova MD Date of Service: 07/31/25 Procedure(s): XR chest 2V Accession Number(s): [id number] cc: Victor Hugo Cordova MD Reason for [...] interstitial lung disease. Electronically signed by: Saurav Vizcrara MD 07/31/2025 02:34 PM EST Dictated By: Saurav Arceo MD Signed By: <Electronically signed by Saurav Chi MD in OV> 07/31/25 1434 DD/ 1426 TD/TT: 07/31/25 1431 Supervisor Wet End: Procedure Note Donotuseinterpreter, Image - 07/31/[address] [address] XRay Report Signed Patient: Christopher Saldaña#: [id number] 500 : 1945cct:[id number] Age/Sex: 79 / FADM Date: 07/31/25 Loc: HO.HHCX Attending Dr: Victor Hugo Cordova MD Ordering Physician: Victor Hugo Cordova MD Date of Service: 07/31/25 Procedure(s): XR chest 2V Accession Number(s): [id number] cc: Victor Hugo Cordova MD Reason for [...] 07/31/25 1434 DD/ 1426 TD/TT: 07/31/25 1431 Supervisor Wet End: Victor Hugo Arredondo MD IMG XR PROCEDURES Ren donell Result - Final from Last [address] [address] [employer]
[2025-08-01 14:45] LABS: Alanine Aminotransferase 19 U/L (0-31); Albumin Level 4.5 g/dL (3.5-5.0); Alkaline Phosphatase 64 U/L (39-117); Anion Gap 8 (12-20); Aspartate Amino Transferase 33 U/L (5-31); Blood Urea Nitrogen 21 mg/dL (9-16); Calcium 9.9 mg/dL (8.4-10.2); Carbon Dioxide 31 mmol/L (22-29); Chloride 102 mmol/L (96-108); Cholesterol 200 mg/dL (<200); Estimated Glomerular Filt Rate 51; HDL Cholesterol 50 mg/dL (>40); Potassium 3.6 mmol/L (3.3-5.1); Sodium 137 mmol/L (135-145); Total Protein 7.7 g/dL (6.5-8.0); Triglycerides 194 mg/dL (<150)
== END 2025-08-01 11:33 | disposition home or self-care (01) ==
LOC: HO.HHCL 11:32
PROVIDERS: PCP Internal Medicine; Visit Provider Internal Medicine
DX: R06.02 Shortness of breath (principal); I10 Essential (primary) hypertension
CPT/HCPCS: 36415; 80053; 80061; 84443; 85025